=== PATIENT | female | born 1980 | race Hispanic/Latino ===

== ENCOUNTER 2020-06-13 09:24 | Outpatient (CLI) | payer BC ==
[2020-06-14 07:03] LABS: SARS-CoV-2 PCR by NAA Not Detected (NotDetected)
== END 2020-06-13 09:25 | disposition home or self-care (01) ==
LOC: LABBT 09:24
PROVIDERS: ATTEND Family Medicine
DX: Z01.812 Encounter for preprocedural laboratory examination (principal); Z53.8 Procedure and treatment not carried out for other reasons; Z20.822 Contact with and (suspected) exposure to COVID-19
CPT/HCPCS: 87635; U0003; U0005

== ENCOUNTER 2020-06-16 07:18 | Outpatient (CLI) | payer BC ==
--- NOTE | 2020-06-16 08:20 | ULT ---
GALLBLADDER ULTRASOUND: Date: 06/16/2020 HISTORY: Epigastric pain. FINDINGS: The liver, gallbladder, pancreas, and right kidney appear normal. The common duct measures 2.0 mm in diameter. No free fluid is seen in Morison's pouch. IMPRESSION: Normal exam. POS: OFF
--- NOTE | 2020-06-16 08:55 | RAD ---
Upper GI: 06/16/2020 COMPARISON: None HISTORY: Epigastric pain FINDINGS: [facility] imaging of the abdomen demonstrates a nonobstructed bowel gas pattern. Double contras t upper GI performed. Imaged portions of the distal esophagus appear normal. No hiatal hernia noted. Contrast media traverses the gastroesophageal junction without delay. No gastroesophageal refl ux was seen during this exam. The gastric fundus appears unremarkable. The gastric rugal fold pattern appears within normal limits. The gastric antrum and the duodenal bulb appear unremarkable. Patient ingested a barium tablet which traverses the gastroesophageal junction without delay. IMPRESSION: Unremarkable upper GI
== END 2020-06-16 07:19 | disposition home or self-care (01) ==
LOC: ULT 07:18
PROVIDERS: ATTEND Family Medicine
DX: R10.13 Epigastric pain (principal)
CPT/HCPCS: 74246; 76705

== ENCOUNTER 2022-01-03 21:30 | Emergency (ER) | payer BC ==
[2022-01-03 22:06] LABS: #Basophils 0.1 thou/uL (0.0-0.2); #Eosinphils 0.3 thou/uL (0.0-0.7); #Lymphocytes 2.8 thou/uL (1.20-3.40); #Monocytes 0.5 thou/uL (0.11-0.59); #Neutrophils 3.5 thou/uL (1.40-6.50); %Basophils 0.7 % (0.0-1.0); %Eosinophils 4.4 % (0.0-10.0); %Lymphocytes 39.1 % (21.0-51.0); %Monocytes 7.3 % (0.0-10.0); %Neutrophils 48.4 % (42.0-75.0); Hemoglobin 12.2 g/dL (12.0-16.0); Mean Corpuscular HGB CONC 33.9 g/dL (32.0-36.0); Mean Corpuscular Hemoglobin 30.9 pg (27.0-31.0); Mean Platelet Volume 8.3 fL (7.4-10.4); Platelet Count 286 thou/uL (130-400); Red Blood Cell (RBC) Count 3.96 mill/uL (4.20-5.40); White Blood Cell (WBC) Count 7.2 thou/uL (4.8-10.8)
[2022-01-03 22:22] LABS: ALT (SGPT) 14 U/L (8-55); AST (SGOT) 21 U/L (5-34); Albumin 4.4 g/dL (3.5-5.0); Alkaline Phosphatase 62 U/L (40-110); Anion Gap 14 mmol/L (10-20); BUN (Urea Nitrogen) 18 mg/dL (7.0-18.7); Bilirubin, Total 0.5 mg/dL (0.2-1.2); Calc. Creatinine Clearance 0 mL/min (70-130); Calcium 9.4 mg/dL (7.8-10.44); Carbon Dioxide 26 mmol/L (22-29); Chloride 103 mmol/L (98-107); Estimated GFR 66; Globulin 3.3 g/dL (2.4-3.5); Glucose 97 mg/dL (70-105); Lipase 49 U/L (8-78); Potassium 4.1 mmol/L (3.5-5.1); Protein, Total 7.7 g/dL (6.0-8.3); Sodium 139 mmol/L (136-145)
[2022-01-03] MEDS ORDERED: Lidocaine Viscous Sol 2% 15 ml UD Cup ONE (22:24)
[2022-01-03] MEDS ORDERED: Mag-Al 1200 mg/1200 mg/30 ML UDCUP ONE (22:24)
== END 2022-01-04 00:50 | disposition home or self-care (01) ==
LOC: ERS 21:30
DX: K21.9 Gastro-esophageal reflux disease without esophagitis (principal)
CPT/HCPCS: 36415; 71045; 80053; 83690; 84484; 85025; 93005

== ENCOUNTER 2023-04-17 11:27 | Outpatient (CLI) | payer BC | END 2023-04-17 11:28 | disposition home or self-care (01) | LOC: BICRAD 11:27 | PROVIDERS: ATTEND Family Medicine | DX: S46.812A Strain of other muscles, fascia and tendons at shoulder and upper arm level, left arm, initial encounter (principal); M75.32 Calcific tendinitis of left shoulder ==

== ENCOUNTER 2024-02-18 19:35 | Emergency (ER) | payer BC ==
[2024-02-18] MEDS ORDERED: HYDROcodone/Acetaminophen 5/325 mg Tablet ONE (22:40)
== END 2024-02-18 22:45 | disposition home or self-care (01) ==
LOC: ERS 19:35
DX: M25.561 Pain in right knee (principal)

== ENCOUNTER 2024-02-24 09:45 | Outpatient (CLI) | payer BC | END 2024-02-24 09:46 | disposition home or self-care (01) | LOC: SCSMRI 09:45 | PROVIDERS: ATTEND Family Medicine | DX: M25.561 Pain in right knee (principal) ==

== ENCOUNTER 2025-03-27 05:28 | Emergency (ER) | payer BC ==
[2025-03-27 05:58] LABS: Bacteria/HPF None Seen HPF (None Seen); CAUTI Indications for Culture Pelvic or flank pain; Glucose, Urine (Dipstick) Normal (Negative); Leukocyte Negative Leu/uL (Negative); Protein, Urine (Dipstick) Negative (Neg-Trace); RBC/HPF 0-3 HPF (0-3); Specific Gravity, Urine 1.002 (1.002-1.036); WBC/HPF None Seen HPF (0-3)
[2025-03-27 06:03] LABS: Urine Culture Reflex No No
[2025-03-27 06:15] LABS: #Basophils 0.05 10x3/uL (0.0-0.2); #Eosinophils 0.27 10x3/uL (0.0-0.7); #Monocytes 0.47 10x3/uL (0.11-0.59); #Neutrophils 3.85 10x3/uL (1.40-6.50); %Basophils 0.6 % (0.0-1.0); %Eosinophils 3.4 % (0.0-10.0); %Lymphocytes 42.0 % (21.0-51.0); %Monocytes 5.8 % (0.0-10.0); %Neutrophils 47.8 % (42.0-75.0); Hematocrit 38.3 % (36.0-47.0); Hemoglobin 13.4 g/dL (12.0-16.0); Mean Corpuscular Hemoglobin 30.2 pg (27.0-31.0); Mean Corpuscular Volume 86.5 fL (78.0-98.0); Platelet Count 246 10x3/uL (130-400); Red Blood Cell (RBC) Count 4.43 mill/uL (4.20-5.40); White Blood Cell (WBC) Count 8.05 10x3/uL (4.8-10.8)
[2025-03-27 06:36] LABS: ALT (SGPT) 12 U/L (Less than 34); AST (SGOT) 24 U/L (11-34); Albumin 4.3 g/dL (3.1-4.5); Alkaline Phosphatase 66 U/L (40-110); Anion Gap 13 mmol/L (10-20); BUN (Urea Nitrogen) 12 mg/dL (7.0-18.7); Bilirubin, Total 0.6 mg/dL (0.3-1.2); Calc. Creatinine Clearance 0 mL/min (70-130); Calcium 9.1 mg/dL (7.8-10.44); Carbon Dioxide 21 mmol/L (22-29); Chloride 110 mmol/L (98-107); Globulin 3.4 g/dL (2.4-3.5); Glucose 113 mg/dL (70-105); Potassium 4.0 mmol/L (3.5-5.1); Sodium 140 mmol/L (136-145)
[2025-03-27 09:56] LABS: BHCG - Serum Negative (NEGATIVE); Pregs Control Bar Appear? YES (CONTROL BAR)
[2025-03-27 09:57] LABS: Pregs Control Background? CLEAR/WHITE (CLR/WHITE)
[2025-03-27 10:12] LABS: Pregnancy Test - Urine (BHCG) Negative (Negative); Pregu Control Background? CLEAR/WHITE (CLR/WHITE); Pregu Control Bar Appear? YES (CONTROL BAR)
[2025-03-27] MEDS ORDERED: Iopamidol-370 76% 500 ML MDV (1 ML CHARGE) ONE (12:06)
== END 2025-03-27 11:30 | disposition home or self-care (01) ==
LOC: ERS 05:28
DX: N83.202 Unspecified ovarian cyst, left side (principal)
CPT/HCPCS: 74177; 80053; 81001; 81025; 84703; 85025